=== PATIENT | male | born 1985 | race Two or more races ===

== ENCOUNTER 2023-05-10 21:14 | Emergency (ER) | payer OTHER ==
[~2023-05-10] VITALS: Ht 188 cm; Wt 87.5 kg
[2023-05-11] MEDS ORDERED: ZITHROMAX500 MG PO (01:24)
== END 2023-05-11 01:36 | disposition home or self-care (01) ==
LOC: ER 21:14
DX: J06.9 Acute upper respiratory infection, unspecified (principal); Z20.822 Contact with and (suspected) exposure to COVID-19

== ENCOUNTER 2024-08-14 17:16 | Emergency (ER) | payer OTHER ==
[~2024-08-14] VITALS: Ht 188 cm; Wt 86.2 kg
[~2024-08-14 17:16] MED LIST: ZITHROMAX500 MG PO
[2024-08-14 21:32] LABS: HEMATOCRIT 43.7 % (39.0-48.0); HEMOGLOBIN 14.8 g/dL (13-16.00); MEAN CELL VOLUME 94.9 fL (80.0-100.00); MEAN CORPUSCULAR HEMOGLOBIN 32.1 pg (27.00-32.0); MEAN CORPUSCULAR HGB CONC 33.8 g/dl (32.0-36.0); PLATELET COUNT 177 K/uL (150-450); RED CELL DISTRIBUTION WIDTH 13.3 % (11.5-14.5)
[2024-08-15 00:03] LABS: URINE APPEARANCE Clear; URINE BILIRRUBIN Negative (NEGATIVE); URINE BLOOD Negative; URINE COLOR Yellow; URINE GLUCOSE Negative (NEGATIVE); URINE KETONE Negative (NEGATIVE); URINE LEUKOCYTE Negative; URINE NITRATE Negative; URINE PROTEIN Negative (NEGATIVE)
[2024-08-15 00:07] LABS: URINE EPITHELIAL CELLS 3.6 uL (0.0-38.8); URINE RBC 2.1 uL (0.0-20.8); URINE WBC 7.6 uL (0.0-23.2)
== END 2024-08-15 00:32 | disposition home or self-care (01) ==
LOC: ER 17:18
PROVIDERS: Preventive Medicine Public Health & General Preventive Medicine
DX: J32.9 Chronic sinusitis, unspecified (principal)